=== PATIENT | female | born 1945 | race Caucasian/White ===

== ENCOUNTER → 2018-09-06 | Outpatient (CLI) | payer MEDICARE, BC ==
[~2018-09-06] MED LIST: ARAVA20 MG PO; ASPIRIN EC81 M1 PO; CALCIUM 600 +1 EAC1 PO; COZAAR 25 MG TA25 M1 PO; CRANBERRY 4001 EAC1 PO; DIUREX WATER P1 EACH PO; FISH OIL 1,2001 EAC4 PO; FOLIC ACID1 MG PO; GAVISCON ES CH1 EAC1 PO; GLUCOSAMINE &1 EACH PO; GREEN COFFEE BEAN PO; MAGNESIUM250 M1 PO; METHOTREXA1 GM/40 M1; MULTIVITAMINS1 EAC7 PO; ODORLESS GARLI500 MG PO; PREDNISONE 2.52.5 M1; PROTONIX40 M2 PO; PROTONIX40 MG PO; VITAMIN B COMP1 EAC7 PO; VITAMIN D1000 UNI1 PO; VITAMIN D2000 UNIT PO; VITAMIN E400 UNIT PO; VITAMINC500 PO; WELLBUTRIN SR150 MG PO; [UNRECOGNIZED DRUG - OTHER]
--- NOTE | 2018-09-16 17:20 | PAINCON ---
[address] [address] PAIN MANAGEMENT CONSULTATION Name: GEOVANNI DE LA PAZ Room: [facility]#: [id number] Admission: 09/06/18 Attend Phys: Horacio Jolly MD Discharge: Date of : 47 Report #: [id number] THIS REPORT FOR: //name// CC: Candy Jolly DATE OF SERVICE: 09/06/2018 PRIMARY CARE PHYSICIAN: Candy Menchaca DO HISTORY OF PRESENT ILLNESS: The patient is a 72-year-old female who has been referred to the pain clinic for evaluation of low back pain and right leg and knee discomfort. The patient has been experiencing pain in the low back area as well as some pain in her left leg. States that she is experiencing a burning pain radiating around to the level of her knee. Notes that she is having difficulty sleeping because of it. She is finding it almost impossible to get comfortable. There is a numbing and tingling sensation in the leg that is there most of the time. She rates her pain as a 6/10. Denies any trauma to this area. Denies any real change in her bowel or bladder function. She also has some pain in the right upper back and lower back area. No history of previous back surgeries. ALLERGIES: CODEINE, ASPIRIN, ERYTHROMYCIN. CURRENT MEDICATIONS: ProAir 108 mcg, aerosol 2 puffs q.i.d. as needed for shortness of air, Protonix 40 mg, losartan 25 mg, leflunomide 20 mg- ____, acyclovir t.i.d., Qvar 80 mcg inhalation 1-2 puffs, Wellbutrin SR 150, folic acid 1 mg. PAST MEDICAL HISTORY: 1. Rheumatoid arthritis. 2. Depression. 3. Hyperlipidemia. 4. Obesity. 5. Gastroesophageal reflux disease. 6. Abnormal thyroid function test. 7. Chronic low back pain. 8. History of cancer, tongue. 9. Injections in the right knee by her orthopedic surgeon. PAST SURGICAL HISTORY: Cholecystectomy in 1966, appendectomy in 1966, right and left bunionectomy in 1995, total hysterectomy in 2006. Cataract surgery in 2016, bladder lift in 2006, tongue cancer in 2003. SOCIAL HISTORY: She is retired, has [place] since [address] [address] PAIN MANAGEMENT CONSULTATION Name: ANA CRISTINATYGEOVANNI A Room: [facility]#: [id number] Admission: 09/06/18 Attend Phys: Horacio Jolly MD Discharge: Date of : 47 Report #: [id number] REVIEW OF SYSTEMS: Generally healthy, weight change 25 pounds in the last 3 years, fatigue and night weakness, cataracts removed. Joint pain, joint stiffness, weakness of muscles and joint, muscle pain, back pain, difficulty walking, change in hair, varicose veins, numbness and tingling sensation, nervousness, insomnia, easy bruising. IMAGING STUDIES: MRI of the lumbar spine dated 08/08/2018. 1. L1-L2, there is circumferential annular disk bulge with a superimposed broad-based symmetrical disk. The disk bulge/protrusion in the left paracentral and left lateral recess extending 0.5 cm posterior to L1-L2. There is contour deformity of the left ventral thecal sac and narrowing of the left lateral recess. Left foraminal disk bulging results in mild narrowing of the anterior inferior left neural foramen without MRI evidence of left L1 nerve root impingement. Thecal sac 0.8 cm AP. 2. L2-L3, there is mild bilateral facet degenerative hypertrophic change. Mild circumferential annular disk bulging is noted. Asymmetric more prominent on the left, paracentral to the left lateral recess region. There is mild relative narrowing of the left lateral recess. Left foraminal disk bulging and endplate osteophyte formation resulting in mild to moderate narrowing of the anterior inferior left neural foramen without evidence of L2 nerve root impingement. The right neural foramen is neck normal in appearance. There is mild central canal stenosis. Thecal sac 0.9 cm AP. 3. L3-L4, there is mild disk space narrowing and ventral endplate osteophyte formation. Mild circumferential annular disk bulging is noted. No focal disk herniation. There is mild bilateral facet ligamentum flavum hypertrophic changes. The left foramen disk bulge and endplate osteophyte formation results in [id number] narrowing of the anterior inferior neural foramen without MR evidence of foraminal L3 nerve root impingement. Right foraminal disk bulging and endplate osteophyte formation resulting in moderate to marked right foraminal stenosis with possible impingement on the undersurface of the right lateral L3 nerve root. There is no central stenosis. Thecal sac 1.1 cm. 4. L4-L5, there is [id number] bilateral facet degenerative hypertrophic changes. Mild to moderate disk space narrowing and ventral endplate osteophyte formation is noted. There is mild circumferential annular disk bulging without focal herniation. No significant left foraminal narrowing is noted. Right foraminal disk bulging and endplate osteophyte formation results in moderate to marked right foraminal stenosis with possible impingement on the undersurface of the right L4 nerve root. Thecal sac 1.1 cm AP. 5. L5-S1 is moderate bilateral facet degenerative hypertrophic changes resulting in grade 1 spondylolisthesis. There is no evidence of disk herniation or central canal stenosis. The right neural foramen is normal in appearance. The left foraminal disk bulge and endplate osteophyte formation results in moderate left foraminal stenosis with possible impingement of the undersurface of the left L5 nerve root. Thecal sac 1.1 cm AP. PAIN CLINIC ASSESSMENT/PQRS: [place] [address] PAIN MANAGEMENT CONSULTATION Name: GEOVANNI DE LA PAZ Room: [facility]#: [id number] Admission: 09/06/18 Attend Phys: Horacio Jolly MD Discharge: Date of : 47 Report #: [id number] 1. The patient is being treated for rheumatoid arthritis. 2. Height 5 feet 2 inches, weight 214 pounds, BMI is 39.3. 3. Vital signs: Blood pressure 151/68, heart rate 80, respiratory rate 18, room air saturation 95%, temperature 97.6. 4. Pain intensity /10. 5. Fall risk. The patient has not fallen in the last 3 months. 6. Blood thinner. The patient is not on a blood thinning medication. 7. Hypertension. The patient is being treated for hypertension. 8. Opioid therapy greater than 6 weeks. The patient is not on chronic opioid use of medication. 9. Functional assessment tool low for opioid use. 10. Recreational drug use. The patient denies use of recreational drugs. 11. Tobacco: The patient denies use of tobacco. 12. Alcohol: The patient denies significant use of alcoholic beverages. PHYSICAL EXAMINATION: GENERAL: The patient is a well-developed, somewhat obese white female, appears her stated age. She is alert and oriented x 3. Her affect is appropriate. Speech is fluent. HEENT: Normocephalic, atraumatic. Extraocular eye muscles intact. Sclerae nonicteric. Mucous membranes are moist. NECK: Without adenopathy or JVD. HEART: Regular rate. CHEST: Clear to auscultation without rhonchi. EXTREMITIES: Upper extremity muscle strength judged to be 5/5 for the major muscle groups. Lower extremity muscle strength is judged to be 5-/5 for the lower extremity. The patient has pain and discomfort, which radiates down in the left lateral portion of her leg in the L3-L4 dermatomal distribution with complaints of burning and some sensory changes in her leg with some weakness. The patient has some knee pain on the right. IMPRESSION: 1. Lumbar radiculopathy involving the L3-L4 area on the left. 2. Rheumatoid arthritis. 3. Depression. 4. Hyperlipidemia. 5. Obesity. 6. Gastroesophageal reflux disease. 7. Abnormal thyroid function test. 8. Chronic low back pain. 9. History of cancer, tongue. 10. Injections in the right knee by her orthopedic surgeon. RECOMMENDATIONS: We discussed treatment options. The patient will return to the pain clinic in the near future. She will then undergo an epidural steroid injection involving the low back area and the treatment [place] [address] PAIN MANAGEMENT CONSULTATION Name: GEOVANNI DE LA PAZ Room: [facility] NEERAJ Larios#: [id number] Admission: 09/06/18 Attend Phys: Horacio Jolly MD Discharge: Date of : 47 Report #: [id number] pain and discomfort she is experiencing in her knee and leg. Possible complications of the procedure were discussed. They include infection, increased muscle soreness, headache, bleeding, worsened pain, no improvement in plane. The patient will return to the pain clinic at which time we will then review her information and proceed with an epidural steroid injection to help quell the pain and discomfort she is experiencing at this juncture. <ELECTRONICALLY SIGNED> By: Horacio Jolly MD 09/16/18 1720 1717 [id number]. Freddy Jolly MD /[facility]
== END ==
LOC: M.PC 04:54
DX: M54.16 Radiculopathy, lumbar region (principal); M06.9 Rheumatoid arthritis, unspecified; G89.29 Other chronic pain; E78.5 Hyperlipidemia, unspecified; E66.9 Obesity, unspecified; F32.9 Major depressive disorder, single episode, unspecified; K21.9 Gastro-esophageal reflux disease without esophagitis; R94.6 Abnormal results of thyroid function studies; Z85.810 Personal history of malignant neoplasm of tongue

== ENCOUNTER → 2018-09-13 | Outpatient (CLI) | payer MEDICARE, BC ==
--- NOTE | 2018-09-16 17:20 | PAINCON ---
[address] [address] PAIN MANAGEMENT CONSULTATION Name: GEOVANNI DE LA PAZ Room: [facility]#: [id number] Admission: 09/13/18 Attend Phys: Horacio Jolly MD Discharge: Date of : 49 Report #: [id number] THIS REPORT FOR: //name// CC: Candy Jolly DATE OF SERVICE: 09/13/2018 CHIEF COMPLAINT: Pain down into the low back area. HISTORY: The patient is a 72-year-old female who has been seen in the pain clinic because of lumbar radicular pain. She has returned today for renewal for an epidural injection. She has had pain in the low back area. This has been radiating down into her left leg. She rates her pain as a 5-6/10. ALLERGIES: CODEINE, ASPIRIN, ERYTHROMYCIN. CURRENT MEDICATIONS: ProAir inhalation 2 puffs 4 times a day p.r.n. shortness of air, Protonix 40 mg daily, losartan 25 mg, leflunomide 20 mg, acyclovir 400 mg t.i.d., QVAR 80 mcg inhalation 1 to 2 puffs daily, Wellbutrin 150 mg extended release, folic acid 1 mg. PAIN CLINIC ASSESSMENT AND PQRS: 1. The patient is being treated for rheumatoid arthritis and has some complaints of osteoarthritic changes in the low back area. 2. Height 5 feet 2 inches, weight 214 pounds, BMI is 39.5. 3. VITAL SIGNS: Blood pressure 144/76, heart rate 76, respiratory rate 18, room air saturation 94%, temperature 98. 4. Pain intensity 5-6/10. 5. Fall risk. The patient has not fallen in the last 3 months. 6. Blood thinner. The patient is not on a blood thinning medication. 7. Hypertension. The patient is being treated for hypertension. 8. Opioids greater than 6 weeks. The patient is not receiving opioid medications on a regular basis. 9. Risk assessment tool, low for opioid use. 10. Functional assessment tool. 11. Recreational drug use. The patient denies use of recreational drugs. 12. Tobacco: The patient denies use of tobacco. 13. Alcoholic beverages. The patient denies excessive use of alcoholic beverages. PHYSICAL EXAMINATION: GENERAL: The patient is a well-developed, obese white female. Appears her stated age. She is alert and oriented x 3. Affect is appropriate. Speech is fluent. HEENT: Normocephalic, atraumatic. Extraocular eye [place] [address] PAIN MANAGEMENT CONSULTATION Name: GEOVANNI DE LA PAZ Room: [facility]#: [id number] Admission: 09/13/18 Attend Phys: Horacio Jolly MD Discharge: Date of : 47 Report #: [id number] nonicteric. Mucous membranes are moist. NECK: The patient's neck without adenopathy or JVD. LUNGS: Clear to auscultation. HEART: Regular rate. S1, S2. CHEST: Clear to auscultation without rhonchi or rales. ABDOMEN: Protuberant. MUSCULOSKELETAL: Upper extremity muscle strength is judged to be 5-/5 for the major muscle groups in the upper extremity. The patient without appreciable scoliosis, kyphosis or lordosis. Has pain and discomfort in the lower portion of her back with pain that radiates around the lateral portion of her thigh on the low back area on the left side with numbness and tingling in the anterior portion of her thigh in the L3-L4 distribution. The patient has some perceived weakness in the left leg. IMPRESSION: 1. Lumbar radiculopathy, L3-L4 distribution of the anterior thigh. 2. Obesity. 3. Gastroesophageal reflux disease. 4. Postmenopausal. 5. Abnormal thyroid function test. 6. Urinary incontinence. 7. Hyperlipidemia. 8. Rheumatoid arthritis. 9. Depression. RECOMMENDATIONS: We discussed treatment options with the patient. Risks and benefits of an epidural steroid injection were again reviewed. The patient has returned today for an epidural steroid injection. Again, we reviewed the possible complication of the procedure, which could include but are not limited to infection, increased muscle soreness, headache, bleeding, worsening pain, no improvement in pain and the patient elects to proceed. PROCEDURE NOTE: The patient was taken to the procedure area. She was assisted in getting on the examination table. She was placed in the prone position. Fluoroscopy was used to identify the L2-L3, L3-L4 interspace. Her back was sterilely prepped with a Betadine solution. A 0.25% bupivacaine was infiltrated. A total of 80 mg of Depo-Medrol, 40 mg of triamcinolone and 2 mL of 0.25% bupivacaine was injected. The patient tolerated the procedure well. There were no complications. A total of 23 seconds fluoroscopy time was used. The patient remained in the pain clinic for an appropriate amount of time. She will follow up in the future as needed. [address] [address] PAIN MANAGEMENT CONSULTATION Name: GEOVANNI DE LA PAZ Room: [facility]#: [id number] Admission: 09/13/18 Attend Phys: Horacio Jolly MD Discharge: Date of : 47 Report #: [id number] We would like to thank you for letting us participate in her care. We hope she continues to improve. <ELECTRONICALLY SIGNED> By: Horacio Jolly MD 09/16/18 1720 [id number] [id number]. Freddy Jolly MD /[facility]
== END ==
LOC: M.PC 05:26
DX: M54.16 Radiculopathy, lumbar region (principal); I10 Essential (primary) hypertension; K21.9 Gastro-esophageal reflux disease without esophagitis; E78.5 Hyperlipidemia, unspecified; M06.9 Rheumatoid arthritis, unspecified; F32.9 Major depressive disorder, single episode, unspecified; E66.9 Obesity, unspecified; Z88.8 Allergy status to other drugs, medicaments and biological substances; Z79.899 Other long term (current) drug therapy; Z68.39 Body mass index [BMI] 39.0-39.9, adult

== ENCOUNTER → 2018-10-18 | Outpatient (CLI) | payer MEDICARE, BC ==
[~2018-10-18] MED LIST changes: +NEURONTIN 300300 M1 PO
--- NOTE | ~2018-10-18 | PAINCON ---
[address] [address] PAIN MANAGEMENT CONSULTATION Name: GEOVANNI DE LA PAZ Room: [facility]#: [id number] Admission: 10/18/18 Attend Phys: Horacio Jolly MD Discharge: Date of : 47 Report #: [id number] THIS REPORT FOR: //name// CC: Candy Jolly DATE OF SERVICE: 10/18/2018 CHIEF COMPLAINT: Pain in the right lower leg on the front side as well as burning and weakness. HISTORY: The patient is a 73-year-old female who has been seen in the pain clinic because of left anterior lumbar radiculopathy at L2-L3. She underwent an epidural steroid injection at the last visit. She noted some changes in the character of her pain. She describes it as a burning sensation on the lateral portion of her thigh near the trochanteric area. That has improved. Has pain that continues to wrap down the left lateral portion of her thigh and is quite uncomfortable. States there is a burning component to it. She feels that her leg becomes somewhat numb in certain positioning. This is particularly at night when she is in bed. Notes that the burning pain does bother her and makes it more difficult for her to get a good night sleep. She has had no complication from the procedure. Rates her pain today as a 5-6/10. Feels that ibuprofen can be helpful. She has received medication from her pound attendant. ALLERGIES: CODEINE, ASPIRIN, ERYTHROMYCIN. CURRENT MEDICATIONS: ProAir inhalation 2 puffs 4 times daily, shortness of breath, Protonix 40 mg daily, losartan 25 mg, Leflunomide 20 mg, acyclovir 400 mg t.i.d., QVAR 80 mg inhalation 1 to 2 puffs daily, Wellbutrin 150 mg extended release, folic acid 1 mg. PAIN CLINIC ASSESSMENT/PQRS: 1. The patient is being treated by the pound attendant. Does have some osteoarthritic changes in her low back area. 2. Height 5 feet 2 inches. Weight 213 pounds, BMI is 38.9. 3. Vital Signs: Blood pressure 120/70, heart rate 78, respiratory rate 16, room air saturation 93%, temperature 98.8. 4. Pain score 5-6/10 5. Fall history: The patient has not fallen in the last 3 months. 6. Blood thinner. The patient is not on a blood thinning medication. 7. Hypertension. The patient is being treated for hypertension. 8. Opioids greater than 6 weeks. The patient is not receiving opioid medication on a regular basis. 9. Risk assessment tool, low for opioid use. 10. Functional assessment tool. 11. Recreational drug use. The patient [place] [address] PAIN MANAGEMENT CONSULTATION Name: ANA CRISTINAMARNIEChava Larsen Room: [facility]#: [id number] Admission: 10/18/18 Attend Phys: Horacio Jolly MD Discharge: Date of : 47 Report #: [id number] 12. Tobacco: The patient denies use of tobacco. 13. Alcoholic beverages. The patient denies use of alcoholic beverages. PHYSICAL EXAMINATION: GENERAL: The patient is a well-developed, well-nourished, somewhat obese white female, appears her stated age. She is alert and oriented x 3. Affect is appropriate. Speech is fluent. HEENT: Normocephalic, atraumatic. Extraocular eye muscles intact. Sclerae nonicteric. Mucous membranes moist. NECK: Without adenopathy or JVD. LUNGS: Generally clear to auscultation without rhonchi. HEART: Regular rate. S1, S2. ABDOMEN: Protuberant. Bowel sounds present. MUSCULOSKELETAL: Upper extremity muscle strength is judged to be 5-/5 for the major muscle groups in the upper extremity. The patient has pain in the lower portion of her back with pain that radiates down into the L2-L3 dermatomal distribution of her thigh. At this point, she would like to undergo an injection. He does perceives some weakness in the left thigh and felt like her legs have somewhat of numb feeling with burning and tingling. The pain remains above her knee. IMPRESSION: 1. Lumbar radiculopathy L2-L3 distribution anterior thigh. 2. Obesity. 3. Gastroesophageal reflux disease. 4. Post-menopausal. 5. Abnormal thyroid function test. 6. Urinary incontinence. 7. Hyperlipidemia. 8. Rheumatoid arthritis. 9. Depression. RECOMMENDATIONS: We discussed treatment options with the patient. Risks and benefits of the procedure were again discussed with the patient. Possible complications of the procedure, which could include but are not limited to infection, worsening pain, no improvement in pain were discussed and the patient elects to proceed. She is having burning sensation in her thigh. Again, we discussed the benefits of medications like gabapentin. They can be helpful with nerve irritation types of pain with burning sensation. The patient will start this medication have a tapered. She will take it as prescribed. She will call us if she has any problems. She would like to proceed today with another epidural steroid injection. We will proceed. PROCEDURE NOTE: The patient was taken to the procedure room. She was assisted in getting on the examination table. Her back was sterilely prepped with a Betadine solution. Fluoroscopy using the anterior, posterior as well as lateral [address] [address] PAIN MANAGEMENT CONSULTATION Name: GEOVANNI DE LA PAZ Room: [facility]#: [id number] Admission: 10/18/18 Attend Phys: Horacio Jolly MD Discharge: Date of : 47 Report #: [id number] viewing were implemented. At the L2-L3 area, 0.25% bupivacaine was infiltrated. A 17-gauge Tuohy with loss of resistance technique was used to gain access to the epidural space using the left paramedian approach. After appropriate placement, a total of 80 mg Depo-Medrol, 40 mg triamcinolone and 2 mL of 0.25% bupivacaine was injected. The patient tolerated the procedure well. There were no complications. Total of 16 seconds fluoroscopy time was used. The patient will follow up in the future as needed. We would like to thank you for letting us participate in her care. We hope she continues to improve. By: [id number]. Freddy Jolly MD /nt
== END | disposition home or self-care (01) ==
LOC: M.PC 08:10
DX: M54.16 Radiculopathy, lumbar region (principal); G89.29 Other chronic pain; I10 Essential (primary) hypertension; E78.5 Hyperlipidemia, unspecified; M06.9 Rheumatoid arthritis, unspecified; F32.9 Major depressive disorder, single episode, unspecified; K21.9 Gastro-esophageal reflux disease without esophagitis; E66.09 Other obesity due to excess calories; N95.9 Unspecified menopausal and perimenopausal disorder; R32 Unspecified urinary incontinence; Z88.8 Allergy status to other drugs, medicaments and biological substances; Z68.38 Body mass index [BMI] 38.0-38.9, adult; Z79.899 Other long term (current) drug therapy; Z98.890 Other specified postprocedural states; Z79.82 Long term (current) use of aspirin

== ENCOUNTER → 2018-10-25 | Outpatient (CLI) | payer MEDICARE, BC ==
[~2018-10-25] MED LIST changes: +PERCOCET 5-3251 EACH PO
== END ==
LOC: M.PC 09:05 → M.RAD 09:05 → M.PC 13:30
DX: M46.87 Other specified inflammatory spondylopathies, lumbosacral region (principal); M47.897 Other spondylosis, lumbosacral region; M16.12 Unilateral primary osteoarthritis, left hip; M41.86 Other forms of scoliosis, lumbar region; S32.009A Unspecified fracture of unspecified lumbar vertebra, initial encounter for closed fracture; X58.XXXA Exposure to other specified factors, initial encounter; Y93.89 Activity, other specified; Y92.89 Other specified places as the place of occurrence of the external cause; Y99.8 Other external cause status

== ENCOUNTER → 2018-11-01 | Outpatient (CLI) | payer MEDICARE, BC ==
[~2018-11-01] MED LIST changes: +TRAMADOL 50 MG50 MG PO
--- NOTE | ~2018-11-01 | PAINCON ---
[facility] [address] [place] [address] PAIN MANAGEMENT CONSULTATION Name: GEOVANNI DE LA PAZ [id number] Admission: 11/01/18 Attend Phys: Horacio Jolly MD Discharge: Date of : 49 Report #: [id number] THIS REPORT FOR: //name// CC: Candy Jolly DATE OF SERVICE: 11/01/2018 CHIEF COMPLAINT: Pain in the back is improved, but is still there. HISTORY: The patient is a 73-year-old female who has been seen in the pain clinic because of pain and discomfort involving her low back area. She had pain and discomfort in the L2/L3 dermatomal distribution. She underwent an epidural steroid injection. Noted that pain, which she was experiencing in the anterior portion of her leg, resolved and improved. She then noted some increased pain and discomfort involving the left lateral trochanteric area as well as some pain in the left groin area. Pain was quite severe. We saw her follow up in the pain clinic. Because of the severity of her pain, she was started on Percocet 5 mg 1 p.o. t.i.d. as well as gabapentin. She had used tramadol, but did not feel that that was providing significant pain benefit. She feels now that use of the tramadol might be more helpful. Feels that the pain has decreased and rates it now as a 6/10. She did have an x-ray of her left hip because of the severity of her pain as well as pain symptoms, which we have seen in patients who have experienced compression fractures. Overall, use of a Medrol Dosepak, Percocet and gabapentin have decreased her pain. She has returned today for followup. ALLERGIES: CODEINE, ASPIRIN, ERYTHROMYCIN. CURRENT MEDICATIONS: ProAir inhaler 2 puffs 4 times daily, shortness of breath, Protonix 40 mg, losartan 25 mg, Leflunomide 20 mg, acyclovir 400 mg t.i.d., QVAR 80 mg inhalation 1-2 puffs daily, Wellbutrin 150 mg extended release, folic acid 1 mg, Percocet 5 mg 1 p.o. t.i.d., tramadol again that has been used. PAIN CLINIC ASSESSMENT/PQRS: 1. The patient is being treated by spinning operator. She does have osteoarthritic change in her low back area. 2. Height 5 feet 2 inches, weight 208 pounds, BMI is 37.8. 3. Vital signs: Blood pressure 125/53, heart rate 74, respiratory rate 16, room air saturation 96%, temperature 97.6. 4. Pain intensity 10. 5. Fall history: The patient has not fallen in the last 3 months. 6. Blood thinner. The patient is not on a blood thinning medication. 7. Hypertension. The patient is being treated for hypertension. 8. Opioids greater than 6 weeks. The patient is receiving was not receiving opioids on a regular basis. 9. Risk assessment tool, [place] [address] PAIN MANAGEMENT CONSULTATION Name: GEOVANNI DE LA PAZ Room: [facility]#: [id number] Admission: 11/01/18 Attend Phys: Horacio Jolly MD Discharge: Date of : 47 Report #: [id number] 10. Functional assessment tool. 11. Recreational drug use. The patient denies use of recreational drugs. 12. Tobacco: The patient denies use of tobacco. 13. Alcoholic beverages. The patient denies use of alcoholic beverages. PHYSICAL EXAMINATION: GENERAL: The patient is a well-developed, well-nourished white female. Appears somewhat obese. She is having less pain and discomfort then at her previous visit. Speech is fluent. Her is not with her. HEAD, EYES, EARS, NOSE, AND THROAT: Normocephalic, atraumatic. Extraocular muscles intact. Sclerae nonicteric. Mucous membranes moist. NECK: Without adenopathy or JVD. LUNGS: Clear to auscultation without rhonchi or rales. HEART: Regular rate. S1, S2. ABDOMEN: Protuberant. Bowel sounds present. MUSCULOSKELETAL: Upper extremity muscle strength is judged to be 5-/5 for the major groups of the muscle groups in the upper extremity. The patient has some pain and discomfort that continues to be problematic in the lower portion of her back. Notes that there is some pain that radiates around the left buttocks area. Has some discomfort in the left groin. She is walking better. Has less pain and discomfort. Has less weakness in her lower extremities. Still has a burning sensation in the lateral portion of her thigh. IMPRESSION: 1. History of lumbar radiculopathy, L2-L3 distribution anterior thigh. 2. Obesity. 3. Gastroesophageal reflux disease. 4. Postmenopausal. 5. Abnormal thyroid function test. 6. Urinary incontinence. 7. Hyperlipidemia. 8. Rheumatoid arthritis. 9. Depression. RECOMMENDATIONS: We discussed treatment options with the patient. At this juncture, we will continue with the gabapentin. She feels overall that this medication has been helpful. She is taking 300 mg 1 p.o. t.i.d. We will increase it to 4 tablets daily. She will take 2 tablets in the morning, 1 in the afternoon and 1 at night. The patient also will again try tramadol for pain control. She will take 1 p.o. q.i.d. as needed. The patient has also been given a script for Percocet. Should her pain becomes very intense again. She could take this medication and then give us a call. Hopefully, this would keep her from having to go to the Emergency Room. We have rewritten her medications. She will call us if [place] [address] PAIN MANAGEMENT CONSULTATION Name: GEOVANNI DE LA PAZ Chava Room: [facility]#: [id number] Admission: 11/01/18 Attend Phys: Horacio Jolly MD Discharge: Date of : 47 Report #: [id number] We would like to thank you for letting us to participate in her care. By: [id number]. Freddy Jolly MD /EBENEZER
== END ==
LOC: M.PC 04:17
DX: M54.16 Radiculopathy, lumbar region (principal); E66.9 Obesity, unspecified; K21.9 Gastro-esophageal reflux disease without esophagitis; R94.6 Abnormal results of thyroid function studies; R39.81 Functional urinary incontinence; E78.5 Hyperlipidemia, unspecified; F32.9 Major depressive disorder, single episode, unspecified; M06.9 Rheumatoid arthritis, unspecified; Z78.0 Asymptomatic menopausal state

== ENCOUNTER → 2018-12-20 | Outpatient (CLI) | payer MEDICARE, BC ==
--- NOTE | ~2018-12-20 | PAINCON ---
[address] [address] PAIN MANAGEMENT CONSULTATION Name: GEOVANNI DE LA PAZ Room: [facility]#: [id number] Admission: 12/20/18 Attend Phys: Horacio Jolly MD Discharge: Date of : 47 Report #: [id number] THIS REPORT FOR: //name// CC: Candy Jolly DATE OF SERVICE: 12/20/2018 CHIEF COMPLAINT: Left leg and hip pain. HISTORY: The patient is a 73-year-old female who has been followed in the Pain Clinic. She has pain and discomfort in the low back area. It involves the L2-L3 dermatomal distribution. She has undergone epidural steroid injections in the past and noticed benefit from that. She had been given a Medrol Dosepak to take in the event that her pain increased. She did take the Medrol Dosepak. She notes that it helped somewhat. She took it on the 11/27. She took a second Dosepak without significant improvement. At this point, the pain is worse. Notes increased pressure. Rates as an 8/10. Continues to use tramadol and gabapentin to help decrease her pain. Notes that with activity, the pain is exacerbated. Standing it is worse. Notes that rest of and massage could be beneficial. ALLERGIES: CODEINE, ASPIRIN, ERYTHROMYCIN. MEDICATIONS: ProAir inhaler 2 puffs q.i.d., shortness of breath, Protonix 40 mg, losartan 25 mg, leflunomide 20 mg, acyclovir 400 mg t.i.d., QVAR-80 mg inhalation 1 to 2 puffs daily, Wellbutrin 150 mg extended release, folic acid 1 mg, Percocet 5 mg 1 p.o. t.i.d., tramadol 50 mg p.r.n. PAIN CLINIC ASSESSMENT/PQRS: 1. The patient is being treated for gas worker. She does have osteoarthritic changes in her low back area. 2. Height 5 feet 2 inches, weight 209 pounds, BMI is 38.6. 3. Vital signs: Blood pressure 137/47, heart rate 81, respiratory rate 16, room air saturation 93%. Temperature 97.9. Pain intensity 8/10. 4. Fall history: The patient has not fallen in the last 3 months. 5. Blood thinner. The patient is not on a blood thinning medication. 6. Hypertension. The patient is being treated for hypertension. 7. Opioids greater than 6 weeks. The patient [facility]. 8. Risk assessment tool, low for use of opioids. 9. Functional assessment tool. 10. Recreational drug use. 11. The patient denies use of recreational drugs. 12. Tobacco: The patient denies use of tobacco. 13. Alcohol: The patient [place] [address] PAIN MANAGEMENT CONSULTATION Name: GEOVANNI DE LA PAZ Room: [facility]#: [id number] Admission: 12/20/18 Attend Phys: Horacio Jolly MD Discharge: Date of : 47 Report #: [id number] PHYSICAL EXAMINATION: GENERAL: The patient is a well-developed, well-nourished white female. Appears her stated age. She is somewhat obese. She is having some discomfort in the low back area. She is unaccompanied. HEENT: Normocephalic, atraumatic. Extraocular eye muscles intact. Sclerae nonicteric. Mucous membranes are moist. NECK: Without adenopathy. The patient is wearing glasses. Without JVD. LUNGS: Without rhonchi or rales. HEART: Regular rate. S1, S2. ABDOMEN: Protuberant. Bowel sounds present. MUSCULOSKELETAL: Upper extremity muscle strength is judged to be 5-/5 for the major muscle groups in the upper extremity. The patient has some pain and discomfort that is in the lower portion of her back. Notes pain in the left buttocks area. Has some pain in the groin area. Walks with slightly antalgic gait. Notes increased pain in the shoulder. Uses her hands to go from a sitting to a standing position. The patient describes this some of the worst pain she has felt in her life. ASSESSMENT: 1. History of lumbar radiculopathy, L2-L3 distribution anterior side. 2. Obesity. 3. Gastroesophageal reflux. 4. Postmenopausal. 5. Abnormal thyroid function test. 6. Urinary incontinence. 7. Hyperlipidemia. 8. Rheumatoid arthritis. 9. Depression. RECOMMENDATIONS: We discussed treatment options with the patient. At this juncture, we will continue with her current medical regimen of tramadol 50 mg 1 p.o. q. 4 hours p.r.n. She will also try to hydrocodone, oxycodone 5 mg 1 p.o. daily p.r.n. and as the patient will continue with Neurontin 300 mg 2 pills in a.m., 1 pill in afternoon, 1 pill at night. Scripts for these medications have been written. She will call if she has any concerns. We would like to thank you for letting us participate in her care. We hope she continues to improve. By: [id number]. Freddy Jolly MD /nt
== END ==
LOC: M.PC 05:00
DX: M54.16 Radiculopathy, lumbar region (principal); K21.9 Gastro-esophageal reflux disease without esophagitis; E78.5 Hyperlipidemia, unspecified; F32.9 Major depressive disorder, single episode, unspecified; R32 Unspecified urinary incontinence; M06.9 Rheumatoid arthritis, unspecified; R94.6 Abnormal results of thyroid function studies; E66.9 Obesity, unspecified; Z78.0 Asymptomatic menopausal state; Z68.38 Body mass index [BMI] 38.0-38.9, adult

== ENCOUNTER → 2019-06-22 | Outpatient (CLI) | payer MEDICARE, BC ==
--- NOTE | ~2019-06-22 | PAINCON ---
[address] [address] PAIN MANAGEMENT CONSULTATION Name: GEOVANNI DE LA PAZ Room: [facility]#: [id number] Admission: 06/22/19 Attend Phys: Horacio Jolly MD Discharge: Date of : 47 Report #: [id number] THIS REPORT FOR: //name// CC: Candy Jolly DATE OF SERVICE: 06/22/2019 PRIMARY CARE PHYSICIAN: Candy Menchaca DO CHIEF COMPLAINT: Low back and leg pain. HISTORY: The patient is a 73-year-old female who has been followed in the pain clinic because of chronic back pain. She continues to have pain and discomfort, which is quite problematic. She has pain in the L2-L3 dermatomal distribution. Epidural steroid injections have been provided in the past. She has had pain, which was quite problematic. She sought a neurosurgeon consult. States that she was also seen by a neurologist. They performed test, but were unable to discern exactly which nerves were involved in her low back area. At this point, they think that conservative treatment would still be the best option. She rates her pain as a 2-3/10. Walking, standing for prolonged periods of time exacerbate her discomfort. She does have difficulty sleeping. After about 3 hours of sleep, pain becomes quite severe. She then has to get out of bed and sleeps in a chair. Has limited ability to walk for any distance. She used to walk on a track. She can no longer do this because of limitation of back pain. Does continue to have some numbness in the L4-L5 area with some tingling sensation. There is a burning component to it. She has been undergoing physical therapy. She has done 2 courses. She is ready to go for the third course. Each course is about 8 visits. She feels that her medications are beneficial. ALLERGIES: CODEINE, ASPIRIN, ERYTHROMYCIN. MEDICATIONS: ProAir inhaler 2 puffs q.i.d. p.r.n. shortness of breath, Protonix 40 mg, losartan 25 mg, leflunomide 20 mg, acyclovir 400 mg t.i.d., QVAR - 80 mg inhalation 1 to 2 puffs daily, Wellbutrin 150 mg extended release, folic acid 1 mg, Percocet 5 mg 1 p.o. t.i.d., tramadol 50 mg p.r.n. PAIN CLINIC ASSESSMENT AND PQRS: 1. The patient is being treated by a management lead. She has had some arthritic changes in her low back area. 2. Height 5 feet 2 inches, weight 191 pounds, BMI is 35.1. 3. Vital signs: Blood pressure 114/62, heart rate 75, respiratory rate 16, room air saturation 93%. 4. Pain intensity is 3-4/10, 5. Temperature 98.3. [place] [address] PAIN MANAGEMENT CONSULTATION Name: GEOVANNI DE LA PAZ Chava Room: [facility]#: [id number] Admission: 06/22/19 Attend Phys: Horacio Jolly MD Discharge: Date of : 47 Report #: [id number] 6. Fall risk. The patient has not fallen in the last 3 months. 7. Blood thinner. The patient is not on a blood thinning medication. 8. Hypertension. The patient is being treated for hypertension. 9. Opioids greater than 6 weeks. The [facility]. 10. Risk assessment tool, low for opioid use. 11. Functional assessment tool. 12. Recreational drug use, the patient denies. 13. Tobacco: The patient denies use of tobacco. 14. Alcohol: The patient occasionally drinks alcoholic beverage. PHYSICAL EXAMINATION: GENERAL: The patient is a well-developed, well-nourished white female. Appears her stated age. She is alert and oriented x 3. Her affect is appropriate. Speech is fluent. HEENT: Normocephalic, atraumatic. Extraocular eye muscles intact. Sclerae nonicteric. Mucous membranes are moist. NECK: Without adenopathy or JVD. The patient is somewhat obese. LUNGS: Clear to auscultation. HEART: Regular rate. S1, S2. ABDOMEN: Protuberant. Bowel sounds present. MUSCULOSKELETAL: The patient's upper extremity muscle strength judged to be 5-/5 for the major muscle groups in the upper extremity. Has pain and discomfort in the lower portion of her back. Has some pain that radiates around the left portion of her buttocks in the L4-L5 distribution to the level of her thigh. Has an antalgic gait. Has pain in her shoulders. Use her hands to go from a sitting to a standing position. IMPRESSION: 1. History of lumbar radiculopathy, L2-L3 distribution and anterior thigh pain. 2. Obesity. 3. Gastroesophageal reflux. 4. Postmenopausal. 5. Abnormal thyroid function test. 6. Urinary incontinence. 7. Hyperlipidemia. 8. Rheumatoid arthritis. 9. Depression. RECOMMENDATIONS: We discussed treatment options with the patient. At this juncture, we will continue with her current medical regimen. She is continuing with physical therapy. She feels that this has increased her flexibility. She feels that there has been some benefits from this procedure. She will continue for another 8 visits. She feels that her medications of gabapentin 300 mg 1 p.o. t.i.d. are helpful and feels that the tramadol 50 mg q.i.d. help decrease her pain and discomfort. She is not a surgical candidate [place] [address] PAIN MANAGEMENT CONSULTATION Name: GEOVANNI DE LA PAZ Room: [facility]#: [id number] Admission: 06/22/19 Attend Phys: Horacio Jolly MD Discharge: Date of : 49 Report #: [id number] the report of the neurosurgeon. If her pain becomes worse, they would maybe reevaluate things in the future. A script for her medications has been rewritten. She will call us if she has any concerns. We would like to thank you for letting us participate in her care. A script for her medications for the next 90 days of gabapentin and Neurontin have been provided. By: [id number]. Freddy Jolly MD /EBENEZER
== END ==
LOC: M.PC 05:25
DX: M54.5 Low back pain (principal); G89.29 Other chronic pain; I10 Essential (primary) hypertension; K21.9 Gastro-esophageal reflux disease without esophagitis; E78.5 Hyperlipidemia, unspecified; E66.9 Obesity, unspecified; F32.9 Major depressive disorder, single episode, unspecified; Z79.891 Long term (current) use of opiate analgesic

== ENCOUNTER → 2019-11-14 | Outpatient (CLI) | payer MEDICARE, BC ==
[~2019-11-14] MED LIST changes: +BIOTIN5 MG PO; +TOPAMAX SPRINKL15 M1 PO
--- NOTE | ~2019-11-14 | PAINCON ---
[address] [address] PAIN MANAGEMENT CONSULTATION Name: GEOVANNI DE LA PAZ Room: [facility]#: [id number] Admission: 11/14/19 Attend Phys: Horacio Jolly MD Discharge: Date of : 49 Report #: [id number] THIS REPORT FOR: //name// cc: Candy Menchaca Anna S. DO ~ THIS REPORT FOR: //name// CC: Candy Issa DATE OF SERVICE: 11/14/2019 PRIMARY CARE PHYSICIAN: Candy Menchaca DO CHIEF COMPLAINT: Pain down in the left leg and back. HISTORY: The patient is a 74-year-old female who has been experiencing pain down into her left leg and low back. Overall, she feels she is sleeping a bit better. She is getting about 4 hours of sleep at this juncture. She does find that she gets up and goes to sleep in a recliner. She has been working hard to lose weight. She has lost about 30 pounds. She feels that the gabapentin medication and tramadol are still helpful. She has returned today for renewal of her medications. She finds that the gabapentin as well as the tramadol medications are helpful. She rates her pain as a 4/10. She still feels that there is some limitation in her ability to walk because of the pain. She has undergone physical therapy and continues to perform the activities which were taught to her in physical therapy. ALLERGIES: CODEINE, ASPIRIN, AND ERYTHROMYCIN. MEDICATIONS: ProAir inhaler 2 puffs q.i.d., Protonix 40 mg, losartan 25 mg, leflunomide 20 mg, acyclovir 400 mg t.i.d., QVAR 80 mcg inhalation 1-2 puffs, Wellbutrin 150 mg extended release, folic acid 1 mg, Percocet 5 mg 1 p.o. t.i.d., and tramadol 50 mg p.r.n. PAIN CLINIC ASSESSMENT AND PQRS: 1. The patient is being treated by cardiothoracic anesthesia technician. She does have some arthritic changes in her low back. 2. Height 5 feet 2 inches, weight 171 pounds, and BMI is 31. 3. Vital Signs: Blood pressure 116/72, heart rate 70, respiratory rate 16, room air saturation 93%, and temperature 98.5. 4. Pain intensity 4/10. 5. Fall history: The patient has not fallen since we saw her last. 6. Blood thinner. The patient is not on a blood thinning medication. 7. Hypertension. The patient is being [place] [address] PAIN MANAGEMENT CONSULTATION Name: GEOVANNI DE LA PAZ Room: [facility]#: [id number] Admission: 11/14/19 Attend Phys: Horacio Jolly MD Discharge: Date of : 49 Report #: [id number] 8. Opioids greater than 6 weeks. The [facility]. She is taking tramadol. Low for opioid use. 9. Functional assessment tool has been reviewed. 10. Tobacco: The patient denies use of tobacco. 11. Alcohol: The patient occasionally drinks alcoholic beverages. PHYSICAL EXAMINATION: GENERAL: The patient is a well-developed and well-nourished white female. She appears her stated age. She is alert and oriented x 3. Her affect is appropriate. Speech is fluent. HEENT: Normocephalic and atraumatic. Extraocular eye muscles intact. Sclerae nonicteric. Mucous membranes are moist. NECK: Without adenopathy or JVD. LUNGS: Generally clear to auscultation. HEART: Regular rate. ABDOMEN: Nontender. Bowel sounds present. MUSCULOSKELETAL: Upper extremity muscle strength judged to be 5-/5 for the major muscle groups. The patient has some pain in the low back area and down into her left leg around the lateral area with a burning sensation. The patient has an antalgic gait. She uses her hands to go from a sitting to a standing position. IMPRESSION: 1. History of lumbar radiculopathy in the L2-L3 dermatomal distribution in the past. The patient has some lateral leg burning and discomfort. 2. Obesity. The patient has worked hard and lost 32 pounds. 3. Gastroesophageal reflux. 4. Post-menopausal. 5. Abnormal thyroid function test. 6. Urinary incontinence. 7. Hyperlipidemia. 8. Rheumatoid arthritis. 9. Depression. RECOMMENDATIONS: We discussed treatment options with the patient. At this point, we will continue with her medications. She feels that the medications are beneficial. She would like to continue with gabapentin 300 mg 1 p.o. b.i.d. She would also like to continue with tramadol to help with pain control. She will continue with 1 pill p.o. q.i.d. as needed. The risks and benefits of opioid medications have been discussed. The patient feels that the tramadol medication has benefit and she is not having any untoward problems. We will continue with her gabapentin medication. She is thinking clearly. There is no problem. She may follow up in the future with a neurosurgeon. We would like to thank you for letting us participate in her care. She will continue with physical therapy. She will continue with the exercises which have [address] [address] PAIN MANAGEMENT CONSULTATION Name: GEOVANNI DE LA PAZ Room: [facility]#: [id number] Admission: 11/14/19 Attend Phys: Horacio Jolly MD Discharge: Date of : 49 Report #: [id number] been provided. We would like to thank you for letting us participate in her care. We would like to encourage her continued increased activity as well as her weight loss of 32 pounds. By: [id number]. Freddy Jolly MD /nt
== END ==
LOC: M.PC 08:30
DX: M54.5 Low back pain (principal); M79.605 Pain in left leg; E66.9 Obesity, unspecified; K21.9 Gastro-esophageal reflux disease without esophagitis; E78.5 Hyperlipidemia, unspecified; M06.9 Rheumatoid arthritis, unspecified; F32.9 Major depressive disorder, single episode, unspecified; Z78.0 Asymptomatic menopausal state; Z79.891 Long term (current) use of opiate analgesic; Z88.1 Allergy status to other antibiotic agents; Z88.5 Allergy status to narcotic agent; Z88.6 Allergy status to analgesic agent

== ENCOUNTER → 2020-05-30 | Outpatient (CLI) | payer MEDICARE, BC ==
[~2020-05-30] MED LIST changes: +NEURONTIN300 MG PO; +VOLTAREN GEL 1100 G1 TOP
--- NOTE | 2020-06-11 15:37 | PAINCON ---
[address] [address] PAIN MANAGEMENT CONSULTATION Name: ANA CRISTINAGEOVANNI A Room: [facility]#: [id number] Admission: 05/30/20 Attend Phys: Horacio Jolly MD Discharge: Date of : 49 Report #: [id number] THIS REPORT FOR: //name// cc: Candy Menchaca Anna S. DO ~ THIS REPORT FOR: //name// CC: Candy Jolly DATE OF SERVICE: 05/30/2020 CHIEF COMPLAINT: Back pain and left wrist pain, right wrist pain greater than left. HISTORY: The patient is a 74-year-old female who has been followed in the pain clinic. She has pain in the low back area. She also has pain involving both left and right wrist. She describes the pain in the lower portion of her back as a burning, tingling and radiating down into her right leg. Pain can be problematic at night. She has difficulty sleeping. Sometimes this pain wakes her in the morning. She rates it as 4-5 at this point. She sometimes sleeps in a recliner. Feels that her gabapentin medication is helpful. She has returned today for renewal of her medications. Overall, she feels that her pain is about 80% better with the current medical regimen. ALLERGIES: CODEINE, ASPIRIN, ERYTHROMYCIN. CURRENT MEDICATIONS: ProAir inhaler 2 puffs q.i.d., Protonix 40 mg, losartan 25 mg, leflunomide 20 mg, acyclovir 400 mg t.i.d., QVAR 80 mg inhalation, Wellbutrin 150 mg extended release, folic acid 10 mg, Percocet 5 mg 1 p.o. t.i.d., tramadol 50 mg. PAIN CLINIC ASSESSMENT AND PQRS: 1. The patient is being treated for rheumatoid arthritis. She does have some arthritic changes in her back. Complains of arthritic changes in her hands. 2. Height 5 feet 2 inches, weight 160 pounds, BMI is 29. 3. Vital Signs: Blood pressure 132/62, heart rate 66, respiratory rate 16, room air saturation 95%, and temperature is 97.3 4. Pain score 4-5/10. 5. Fall history. The patient has not fallen in the last 3 months. 6. Blood thinner. The patient is not on a blood thinning medication. 7. Hypertension. The patient is being treated for hypertension. 8. Opioids greater than 6 weeks. The patient receives medication from the pain clinic. 9. Risk assessment tool. Low for opioid use. 10. Functional assessment tool, [place] [address] PAIN MANAGEMENT CONSULTATION Name: GEOVANNI DE LA PAZ Room: [facility]#: [id number] Admission: 05/30/20 Attend Phys: Horacio Jolly MD Discharge: Date of : 49 Report #: [id number] 11. Tobacco. The patient denies use of tobacco. 12. Alcohol. The patient occasionally drinks alcoholic beverages. PHYSICAL EXAMINATION: GENERAL: The patient is a well-developed, well-nourished, white female. Appears her stated age. She is alert and oriented x 3. Her affect is appropriate. Speech is fluent. HEENT: Normocephalic, atraumatic. Extraocular eye muscles intact. Sclerae nonicteric. The patient is wearing a mask. NECK: Without adenopathy or JVD. LUNGS: Generally clear. HEART: Regular rate. ABDOMEN: Nontender. Bowel sounds present. MUSCULOSKELETAL: Upper extremity muscle strength judged to be 4+/5 for the major muscle groups in the upper extremity. The patient has pain in her back. Has pain radiating down the left leg. The patient has an antalgic gait. Uses her hands to go from a sitting to a standing position. Complains of pain and discomfort in her left as well as her right hand. The patient walks with use of a cane. IMPRESSION: 1. History of lumbar radiculopathy L1, 2, 3 dermatomal distribution in the past. The patient also has some lateral leg burning and discomfort. 2. Obesity. The patient has worked hard to lose and maintain weight loss. 3. Gastroesophageal reflux. 4. Postmenopausal. 5. Abnormal thyroid function test. 6. Urinary incontinence. 7. Hyperlipidemia. 8. Rheumatoid arthritis. 9. Depression. RECOMMENDATIONS: We discussed treatment options with the patient. At this juncture, we will continue with her medications. A script for Voltaren gel to place in the affected area 4 times daily has been provided. The patient will also continue with tramadol 50 mg 1 p.o. 4 times daily. She will also continue with gabapentin 300 mg b.i.d. A 3-month supply has been provided. The patient is able to think clearly with her medications. She has not had a fall. We would like to thank you for letting us participate in her care. She will call us if she has any concerns. <ELECTRONICALLY SIGNED> By: Horacio Jolly MD 06/11/20 [id number]. Freddy Jolly MD /PMT
== END ==
LOC: M.PC 05-02 09:40
PROVIDERS: ATTEND Anesthesiology Pain Medicine
DX: M54.9 Dorsalgia, unspecified (principal); M25.532 Pain in left wrist; M25.531 Pain in right wrist; E66.9 Obesity, unspecified; K21.9 Gastro-esophageal reflux disease without esophagitis; R94.6 Abnormal results of thyroid function studies; R39.81 Functional urinary incontinence; E78.5 Hyperlipidemia, unspecified; I10 Essential (primary) hypertension; M06.9 Rheumatoid arthritis, unspecified; F32.9 Major depressive disorder, single episode, unspecified; F11.20 Opioid dependence, uncomplicated; Z78.0 Asymptomatic menopausal state; Z87.39 Personal history of other diseases of the musculoskeletal system and connective tissue; Z88.8 Allergy status to other drugs, medicaments and biological substances; Z79.899 Other long term (current) drug therapy

== ENCOUNTER → 2020-07-18 | Outpatient (CLI) | payer MEDICARE, BC ==
[~2020-07-18] MED LIST changes: +MEDROLDOSEPACK PO; +PERCOCET 7.5-31 EACH PO
--- NOTE | ~2020-07-18 | PAINCON ---
[address] [address] PAIN MANAGEMENT CONSULTATION Name: GEOVANNI DE LA PAZ Room: [facility]#: [id number] Admission: 07/18/20 Attend Phys: Horacio Jolly MD Discharge: Date of : 49 Report #: [id number] THIS REPORT FOR: //name// cc: Candy Menchaca Anna S. DO THIS REPORT FOR: //name// CC: Candy Issa DATE OF SERVICE: 07/18/2020 CHIEF COMPLAINT: Severe low back, left leg and hip pain that is wrapping around to the front of the leg. HISTORY: The patient is a 74-year-old female who has been followed in the Pain Clinic. She has pain in both her low back and left hip. Notes that the pain is quite problematic. She rates it as a 6-7/10. The patient has been tried Voltaren gel. Did not find that this was very helpful. She in the past had used a Medrol Dosepak. Pain has been so severe that she has awakened her at night. She is finding it impossible to get comfortable. Over the night, the pain was rated as 10/10. She has tried tramadol. She continues with gabapentin. She feels that the pain is very severe and has come to the Pain Clinic for evaluation. ALLERGIES: CODEINE, ASPIRIN, ERYTHROMYCIN. CURRENT MEDICATIONS: ProAir inhaler 2 puffs q.i.d., Protonix 40 mg, losartan 25 mg, leflunomide 20 mg, acyclovir 400 mg t.i.d., QVAR 80 mg inhalation, Wellbutrin 150 mg extended release, folic acid, Percocet 5 mg 1 p.o. t.i.d. p.r.n., tramadol 50 mg. PAIN CLINIC ASSESSMENT/PQRS: 1. The patient is being treated for rheumatoid arthritis. She does have some arthritic changes in her back. She complains of arthritic changes in her hands. 2. Height 5 feet 2 inches, weight 158 pounds, BMI is 30. 3. Vital signs: Blood pressure 118/77, heart rate 82, respiratory rate 16, room air saturation 95%, temperature 98.6. 4. Pain intensity, 6-7/10. 5. Fall history: The patient has not fallen. 6. Blood thinner. The patient is not on a blood thinning medication. 7. Hypertension. The patient is being treated for hypertension. 8. Opioids greater than 6 weeks. The patient receives medications from the Pain Clinic. 9. Risk assessment tool, [place] [address] PAIN MANAGEMENT CONSULTATION Name: GEOVANNI DE LA PAZ Room: [facility]#: [id number] Admission: 07/18/20 Attend Phys: Horacio Jolly MD Discharge: Date of : 49 Report #: [id number] 10. Functional assessment tool reviewed. 11. Recreational drug use. The patient denies. 12. Tobacco: The patient denies. 13. Alcohol: The patient occasionally drinks alcoholic beverages. PHYSICAL EXAMINATION: GENERAL: The patient is a well-developed, well-nourished white female. Appears her stated age. She is alert and oriented x 3. Her affect is appropriate. Speech is fluent. The patient is wearing a facial covering. HEENT: Normocephalic, atraumatic. Extraocular eye muscles intact. NECK: Without adenopathy or JVD. LUNGS: Clear. HEART: Regular rate. ABDOMEN: Nontender. Bowel sounds present. MUSCULOSKELETAL: The patient's upper extremity muscle strength is judged to be 4+/5 for the major muscle groups in the upper extremity. The patient has pain and discomfort in her back. States that this pain radiates down into her back, wraps around into the left leg. She is walking with a limp because of the pain and discomfort. Uses hands to go from a sitting to a standing position before walking. Complains of pain in her hands. Walks ambulating with use of a cane. IMPRESSION: 1. History of lumbar radiculopathy, L1, L2, L3 dermatomal distribution in the past. The patient has some lateral discomfort in her left leg. 2. Obesity. The patient works hard at losing weight. 3. Gastroesophageal reflux. 4. Postmenopausal. 5. Abnormal thyroid function test. 6. Urinary incontinence. 7. Hyperlipidemia. 8. Rheumatoid arthritis. 9. Depression. RECOMMENDATIONS: We discussed treatment options with the patient. The patient states that she has had some old Percocet at home. She tried it, but it was not helpful. Feels that her pain is quite debilitating at this juncture. At this point, we will have her try a Medrol Dosepak. A script for this has been provided. The patient will also continue our try oxycodone 7.5 mg 1 p.o. t.i.d. The patient will call us if she has any concerns. We would like to thank you for letting us participate in her care. Hopefully, [address] [place] [address] PAIN MANAGEMENT CONSULTATION Name: GEOVANNI DE LA PAZ Room: [facility]#: [id number] Admission: 07/18/20 Attend Phys: Horacio Jolly MD Discharge: Date of : 49 Report #: [id number] she will find that the Medrol Dosepak is helpful. We may increase her use of pain medications for a brief period of time. By: [id number]. Freddy Jolly MD /nt
== END ==
LOC: M.PC 09:30
PROVIDERS: ATTEND Anesthesiology Pain Medicine
DX: M54.16 Radiculopathy, lumbar region (principal); E66.9 Obesity, unspecified; K21.9 Gastro-esophageal reflux disease without esophagitis; E78.5 Hyperlipidemia, unspecified; F32.9 Major depressive disorder, single episode, unspecified; Z79.899 Other long term (current) drug therapy

== ENCOUNTER → 2020-08-01 | Outpatient (CLI) | payer MEDICARE, BC ==
--- NOTE | 2020-08-21 13:58 | PAINCON ---
[address] [address] PAIN MANAGEMENT CONSULTATION Name: ANA CRISTINAGEOVANNI A Room: [facility]#: [id number] Admission: 08/01/20 Attend Phys: Horacio Jolly MD Discharge: Date of : 49 Report #: [id number] THIS REPORT FOR: //name// cc: Candy Menchaca Anna S. DO ~ CC: Candy Issa DATE OF SERVICE: 08/01/2020 CHIEF COMPLAINT: Sciatic pain. HISTORY: The patient is a 74-year-old female who has been seen in the Pain Clinic in the past because of chronic pain. She has experiencing pain in the lower portion of her back. States that there is pain radiating down into her left hip. There is a burning component in the left hip. Notes that the pain is also present above the knee. She has been having some jolts of pain. Has had some discomfort in the groin area with sitting and has noted some numbness. Rates her pain today as a 5/10. Pain is exacerbated with walking. Notes that use of medications and heat are helpful. Has used tramadol to help with the pain as well as Percocet. ALLERGIES: CODEINE, ASPIRIN, ERYTHROMYCIN. CURRENT MEDICATIONS: ProAir inhaler 2 puffs, Protonix 40 mg, losartan 25 mg, leflunomide 20 mg, acyclovir 400 mg t.i.d., QVAR 80 inhalation, Wellbutrin 150 mg extended release, folic acid, Percocet 5 mg 1 p.o. t.i.d., tramadol. PAIN CLINIC ASSESSMENT/PQRS: 1. The patient does have some arthritic changes in her back. Complains of some arthritic changes in her hands. 2. Height 5 feet 2 inches, weight 157 pounds, BMI is 29.3. 3. Vital Signs: Blood pressure is 110/73, heart rate 77, respiratory rate 18, room air saturation 97%. 4. Pain intensity is 5/10. 5. Fall history: The patient has not fallen in the last 3 months. 6. Blood thinner. The patient is not on a blood thinning medication. 7. Hypertension. The patient is being treated for hypertension. 8. Opioids greater than 6 weeks. The patient receives medication from the Pain Clinic. 9. Risk assessment tool, low for opioid use. 10. Functional assessment tool reviewed. 11. Recreational drug use: The patient denies. 12. Tobacco: The patient denies. 13. Alcohol: The patient [place] [address] PAIN MANAGEMENT CONSULTATION Name: GEOVANNI DE LA PAZ Room: [facility]#: [id number] Admission: 08/01/20 Attend Phys: Horacio Jolly MD Discharge: Date of : 49 Report #: [id number] PHYSICAL EXAMINATION: GENERAL: The patient is a well-developed, well-nourished white female. Appears her stated age. She is alert and oriented x 3. Her affect is appropriate. Speech is fluent. HEENT: Normocephalic, atraumatic. Extraocular eye muscles intact. The patient is wearing a facial covering. HEENT: Normocephalic. Extraocular eye muscles intact. NECK: Without adenopathy or JVD. LUNGS: Generally clear. HEART: Regular rate. ABDOMEN: Nontender. MUSCULOSKELETAL: Upper extremity muscle strength is judged to be 4+/5 for the major muscle groups in the upper extremity. The patient has some pain and discomfort in her low back. Has pain in the left leg and notes pain in the area of the left hip. Internal and external rotation of the hip causes some pain and discomfort in the left hip area and pain that radiates towards the groin. IMPRESSION: 1. Left hip pain. 2. History of lumbar radiculopathy, L1, L2, L3 dermatomal distribution in the past. The patient has also had some lateral hip discomfort in the area of the trochanteric area. 3. Obesity. The patient is working to lose weight. 4. Gastroesophageal reflux. 5. Postmenopausal. 6. Abnormal thyroid function test. 7. Urinary incontinence. 8. Hyperlipidemia. 9. Rheumatoid arthritis. 10. Depression. RECOMMENDATIONS: We discussed treatment options with the patient. She is having pain that appears to be most problematic in the area of the hip and radiates in the area of the greater trochanteric bursa. We will proceed with an injection. Hopefully, this will help identify the etiology of her hip pain. The patient elects to proceed. PROCEDURE NOTE: The patient was taken to the procedure area. She was then assisted in getting on the examination table. Her back was sterilely prepped with a chlorhexidine solution. This was allowed to dry. A 0.25% bupivacaine was infiltrated in the area. A 25-gauge needle was used to provide a skin wheal. A 20-gauge spinal needle was then advanced into the area of the greater trochanteric bursa. Aspiration was negative. A total of 40 mg Depo-Medrol and 5 mL of 0.5% bupivacaine was injected. The patient tolerated the procedure well. There were no complications. She will follow up in the future as needed. [place] [id number] PAIN MANAGEMENT CONSULTATION Name: ANA CRISTINAGEOVANNI Chava Room: [facility]#: [id number] Admission: 08/01/20 Attend Phys: Horacio Jolly MD Discharge: Date of : 49 Report #: [id number] We will consider the possibility of a left hip injection should her pain continue to be problematic. We will have the patient to get a left hip x-ray. <ELECTRONICALLY SIGNED> By: Horacio Jolly MD 08/21/20 [id number]. Freddy Jolly MD /nt
== END | disposition home or self-care (01) ==
LOC: M.PC 08:38
PROVIDERS: ATTEND Anesthesiology Pain Medicine
DX: M25.552 Pain in left hip (principal); G89.29 Other chronic pain; E78.5 Hyperlipidemia, unspecified; F32.9 Major depressive disorder, single episode, unspecified; M06.9 Rheumatoid arthritis, unspecified; E66.9 Obesity, unspecified; K21.9 Gastro-esophageal reflux disease without esophagitis; Z98.890 Other specified postprocedural states; Z68.29 Body mass index [BMI] 29.0-29.9, adult; Z79.899 Other long term (current) drug therapy; Z88.8 Allergy status to other drugs, medicaments and biological substances

== ENCOUNTER → 2020-08-08 | Outpatient (CLI) | payer MEDICARE, BC | LOC: M.RAD 13:01 | PROVIDERS: ATTEND Anesthesiology Pain Medicine | DX: M25.552 Pain in left hip (principal) ==

== ENCOUNTER → 2021-02-20 | Outpatient (CLI) | payer MEDICARE, BC | LOC: M.PC 08:28 | PROVIDERS: ATTEND Anesthesiology Pain Medicine | DX: M25.552 Pain in left hip (principal); G89.29 Other chronic pain; M54.16 Radiculopathy, lumbar region; K21.9 Gastro-esophageal reflux disease without esophagitis; E66.9 Obesity, unspecified; E78.5 Hyperlipidemia, unspecified; F32.9 Major depressive disorder, single episode, unspecified; R32 Unspecified urinary incontinence; R94.6 Abnormal results of thyroid function studies; Z78.0 Asymptomatic menopausal state; Z87.891 Personal history of nicotine dependence; Z79.899 Other long term (current) drug therapy; Z88.8 Allergy status to other drugs, medicaments and biological substances; Z88.6 Allergy status to analgesic agent ==